=== PATIENT | female | born 1990 | race Caucasian/White ===

== ENCOUNTER 2022-12-03 13:26 | Outpatient (CLI) | payer OTHER | END 2022-12-03 13:27 | disposition home or self-care (01) | LOC: SCSMRI 13:26 | PROVIDERS: ATTEND Chiropractor | DX: M76.02 Gluteal tendinitis, left hip (principal) ==

== ENCOUNTER 2022-12-05 14:49 | Outpatient (CLI) | payer OTHER | END 2022-12-05 14:50 | disposition home or self-care (01) | LOC: SCSMRI 14:49 | PROVIDERS: ATTEND Chiropractor | DX: M76.01 Gluteal tendinitis, right hip (principal); S76.811A Strain of other specified muscles, fascia and tendons at thigh level, right thigh, initial encounter; M67.853 Other specified disorders of tendon, right hip ==